=== PATIENT | female | born 1955 | race Caucasian/White ===

== ENCOUNTER 2019-12-02 09:32 | Day surgery (SDC) | payer OTHER, MEDICARE ==
[~2019-12-02] VITALS: Ht 160 cm; Wt 118.3 kg
[~2019-12-02 09:32] MED LIST: ALBU90OI; AZIT250 PO; Advair Hfa 230-12 GM INH; Benicar Hct 201 EACH PO; CELE200 PO; CEPH500 PO; CYAN500; DICLOFENAC SOD100 GM; ERGO400; FLUSAL1005; HYDCHL25 PO; HYDGUAL120 PO; LEVSOD88 PO; LOSARTAN-HCTZ1 EAC1 PO; Omeprazole20 M1 PO; PRED20 PO; RXHYDGUAS PO
== END 2019-12-02 12:25 | disposition home or self-care (01) ==
LOC: ORSCSDS 09:32
PROVIDERS: Internal Medicine Gastroenterology
PROC: 0DJD8ZZ Inspection of Lower Intestinal Tract, Via Natural or Artificial Opening Endoscopic (ICD-10-PCS; principal; 2019-12-02 11:00)
DX: Z12.11 Encounter for screening for malignant neoplasm of colon (principal); Z86.010 Personal history of colon polyps; I10 Essential (primary) hypertension; G47.33 Obstructive sleep apnea (adult) (pediatric); K64.8 Other hemorrhoids; E11.9 Type 2 diabetes mellitus without complications; K57.30 Diverticulosis of large intestine without perforation or abscess without bleeding; E66.9 Obesity, unspecified; Z68.42 Body mass index [BMI] 45.0-49.9, adult; Z79.899 Other long term (current) drug therapy
CPT/HCPCS: J2704

== ENCOUNTER → 2020-03-23 | Outpatient (CLI) | payer MEDICARE, BC | END | disposition home or self-care (01) | LOC: LAB 07:30 → LAB SHORT 07:30 | DX: L82.1 Other seborrheic keratosis (principal) | CPT/HCPCS: 88305 ==

== ENCOUNTER → 2022-01-24 | Outpatient (CLI) | payer MEDICARE, BC | END | disposition home or self-care (01) | LOC: LAB SHORT 14:56 | DX: L83 Acanthosis nigricans (principal) | CPT/HCPCS: 88305 ==

== ENCOUNTER → 2022-10-09 | Outpatient (CLI) | payer MEDICARE, BC | LOC: PLD 07:43 → LAB SHORT 07:43 | DX: R22.31 Localized swelling, mass and lump, right upper limb (principal) | CPT/HCPCS: 88305 ==

== ENCOUNTER → 2023-03-28 | Outpatient (CLI) | payer MEDICARE, BC | LOC: LAB EV 10:20 → LAB SHORT 10:20 | DX: B35.1 Tinea unguium (principal) | CPT/HCPCS: 87102 ==